=== PATIENT | male | born 1955 | race African-American/Black ===

== ENCOUNTER 2021-07-15 16:14 | Inpatient (IN) | payer MEDICARE ==
[~2021-07-15] VITALS: Ht 177.8 cm; Wt 90.5 kg
[~2021-07-15 16:14] MED LIST: NORVASC5 MG PO
[2021-07-15 18:02] LABS: BASOPHIL 0.7 % (0-2); EOSINOPHIL 0.3 % (0-7); HCT 33.5 % (42.0-52.0); HGB 10.6 g/dl (13.2-18.0); LYMPHOCYTE 12.5 % (15-48); MCH 26.4 pg (25.0-31.0); MCHC 31.6 g/dL (32.0-36.0); MCV 83.5 fL (78.0-100.0); MONOCYTE 13.1 % (0-12); MPV 9.5 fL (6.0-9.5); NEUTROPHIL 72.8 % (41-80); NRBC 0; PLT 391 K/uL (150-400); RBC 4.01 M/uL (4.70-6.00); WBC 9.9 K/uL (4.0-10.5)
[2021-07-15 18:41] LABS: D-DIMER 3.92 ug/mLFEU (0.00-0.41)
[2021-07-15 18:44] LABS: INR 0.97 (0.9-1.2); PROTHROMBIN TIME 12.3 SECONDS (11.8-13.4)
[2021-07-15 18:49] LABS: ALBUMIN 2.4 g/dL (3.4-5.0); ALKALINE PHOSHATASE 243 U/L (46-116); ALT 20 U/L (16-63); AST 33 U/L (15-37); BILIRUBIN - TOTAL 0.6 mg/dL (0.2-1.0); BUN 7 mg/dL (7-18); BUN/CREAT RATIO (CALC) 10.4 RATIO; CHLORIDE 84 mmol/L (98-107); CO2 (BICARBONATE) 29 mmol/L (21-32); CREATININE 0.67 mg/dL (0.67-1.17); GLOBULIN (CALCULATION) 5.2 g/dL; GLUCOSE 175 mg/dL (74-106); LIPASE 96 U/L (73-393); MAGNESIUM 2.3 mg/dL (1.8-2.4); POTASSIUM 3.8 mmol/L (3.5-5.1); TOTAL PROTEIN 7.6 g/dL (6.4-8.2)
[2021-07-15 18:54] LABS: PTT 20.2 SECONDS (24.4-34.7)
[2021-07-15 19:12] LABS: CORONAVIRUS 2019 SARS-COV-2 NEGATIVE (NEGATIVE); INFLUENZA A NAA NEGATIVE (NEGATIVE)
[2021-07-15 20:19] LABS: BILIRUBIN 1+ mg/dL (NEGATIVE); BLOOD NEGATIVE Ery/uL (NEGATIVE); CLARITY CLEAR (CLEAR); COLOR YELLOW (YELLOW); GLUCOSE (U) NORMAL (NORMAL); LEUKOCYTES NEGATIVE Leu/uL (NEGATIVE); NITRITE NEGATIVE (NEGATIVE); PROTEIN NEGATIVE (NEGATIVE); SPECIFIC GRAVITY 1.025 (1.001-1.030); UROBILINOGEN >=8.0 mg/dL (0.2-1.0); pH 5.5 (5.0-9.0)
[2021-07-16 03:07] LABS: BILIRUBIN NEGATIVE (NEGATIVE); BLOOD NEGATIVE Ery/uL (NEGATIVE); CLARITY CLEAR (CLEAR); COLOR YELLOW (YELLOW); GLUCOSE (U) NORMAL (NORMAL); LEUKOCYTES NEGATIVE Leu/uL (NEGATIVE); NITRITE NEGATIVE (NEGATIVE); PROTEIN NEGATIVE (NEGATIVE); pH 5.5 (5.0-9.0)
[2021-07-16 11:26] LABS: BUN/CREAT RATIO (CALC) 5.6 RATIO; CREATININE 0.72 mg/dL (0.67-1.17); POTASSIUM 3.3 mmol/L (3.5-5.1)
[2021-07-16 14:54] LABS: BUN/CREAT RATIO (CALC) 9.2 RATIO; CREATININE 0.65 mg/dL (0.67-1.17); POTASSIUM 3.6 mmol/L (3.5-5.1)
[2021-07-16 17:55] LABS: BUN/CREAT RATIO (CALC) 8.5 RATIO; CREATININE 0.71 mg/dL (0.67-1.17); POTASSIUM 3.7 mmol/L (3.5-5.1)
[2021-07-17 04:07] LABS: BASOPHIL 0.1 % (0-2); EOSINOPHIL 0 % (0-7); LYMPHOCYTE 5.4 % (15-48); MCH 26.5 pg (25.0-31.0); MCV 85.3 fL (78.0-100.0); NRBC 0; PLT 367 K/uL (150-400); WBC 12.1 K/uL (4.0-10.5)
[2021-07-17 04:27] LABS: BUN/CREAT RATIO (CALC) 14.5 RATIO; CREATININE 0.62 mg/dL (0.67-1.17); POTASSIUM 3.9 mmol/L (3.5-5.1)
--- NOTE | 2021-07-17 23:44 | NUR ---
PATIENT HAD FALL AT APPROXIMATELY 2300 ON 07/17/2020. WALKED INTO PATIENT'S ROOM, HE IS ON THE FLOOR. I ASSISTED THE PATIENT BACK TO HELP WITH AISSATOU HAN, AND YUNIER FRAGA. ASSESSED THE PATIENT FOR ANY INJURY, PATIENT STATED HITTING HIS BACK. ORDERED A NEW SHOULDER XRAY.
[2021-07-18 04:15] LABS: ALBUMIN 1.9 g/dL (3.4-5.0); BILIRUBIN - TOTAL 0.4 mg/dL (0.2-1.0); CREATININE 0.63 mg/dL (0.67-1.17); GLOBULIN (CALCULATION) 5.2 g/dL; MAGNESIUM 2.5 mg/dL (1.8-2.4); TOTAL PROTEIN 7.1 g/dL (6.4-8.2)
[2021-07-19 07:54] LABS: BASOPHIL 0.1 % (0-2); EOSINOPHIL 0 % (0-7); HCT 31.2 % (42.0-52.0); HGB 9.4 g/dl (13.2-18.0); LYMPHOCYTE 5.6 % (15-48); MCH 26.3 pg (25.0-31.0); MCHC 30.1 g/dL (32.0-36.0); MCV 87.2 fL (78.0-100.0); MONOCYTE 5.8 % (0-12); NEUTROPHIL 87.7 % (41-80); NRBC 0; PLT 356 K/uL (150-400); RBC 3.58 M/uL (4.70-6.00); RDW 16.3 % (11.5-14.0); RETICULOCYTE COUNT 2.2 % (1.0-2.0); WBC 13.3 K/uL (4.0-10.5)
[2021-07-19 08:27] LABS: BILIRUBIN - TOTAL 0.4 mg/dL (0.2-1.0); BUN/CREAT RATIO (CALC) 19.7 RATIO; CREATININE 0.61 mg/dL (0.67-1.17); GLOBULIN (CALCULATION) 5.1 g/dL; POTASSIUM 4.4 mmol/L (3.5-5.1); TOTAL PROTEIN 7.1 g/dL (6.4-8.2)
[2021-07-19 10:07] LABS: IRON % SATURATION 10.4 %SAT (20-50)
[2021-07-20 05:10] LABS: BASOPHIL 0.1 % (0-2); EOSINOPHIL 0 % (0-7); HCT 30.6 % (42.0-52.0); HGB 9.1 g/dl (13.2-18.0); LYMPHOCYTE 5.1 % (15-48); MCH 25.8 pg (25.0-31.0); MCHC 29.7 g/dL (32.0-36.0); MCV 86.7 fL (78.0-100.0); MONOCYTE 7.6 % (0-12); MPV 8.8 fL (6.0-9.5); NEUTROPHIL 86.4 % (41-80); NRBC 0; PLT 319 K/uL (150-400); RBC 3.53 M/uL (4.70-6.00); RDW 16.4 % (11.5-14.0); WBC 12.4 K/uL (4.0-10.5)
[2021-07-20 05:27] LABS: ALBUMIN 1.8 g/dL (3.4-5.0); BILIRUBIN - TOTAL 0.5 mg/dL (0.2-1.0); BUN/CREAT RATIO (CALC) 27.6 RATIO; CREATININE 0.58 mg/dL (0.67-1.17); GLOBULIN (CALCULATION) 4.9 g/dL; TOTAL PROTEIN 6.7 g/dL (6.4-8.2)
--- NOTE | 2021-07-21 12:23 | NUR ---
07/21/21 Mr. Velásquez continues to be unable to participate in an assessment.
--- NOTE | 2021-07-23 04:57 | NUR ---
CALLED AND SPOKE WITH FAMILY AND NOTIFIED OF PATIENT CONDITION, SISTER THAT NURSE SPOKE STATED SHE WOULD NOTIFY OTHER FAMILY .
--- NOTE | 2021-07-23 05:00 | NUR ---
DR. VANEGAS NOTIFIED OF PT CONDITION .
--- NOTE | 2021-07-23 18:41 | NUR ---
WAITING FOR BROTHER WHO IS POA TO COME TO HOSPITAL FOR [facility] NAME
== END 2021-07-23 21:15 | disposition expired | DRG 193 ==
LOC: FER 16:14 → FTCU 07-16 01:40
PROVIDERS: Emergency Medicine; Emergency Medicine Emergency Medical Services; Hospitalist; Internal Medicine; ADMIT Family Medicine
PROC: 02HV33Z Insertion of Infusion Device into Superior Vena Cava, Percutaneous Approach (ICD-10-PCS; 2021-07-15)
PROC: HZ2ZZZZ Detoxification Services for Substance Abuse Treatment (ICD-10-PCS; 2021-07-18)
PROC: 5A0945A Assistance with Respiratory Ventilation, 24-96 Consecutive Hours, High Flow/Velocity Cannula (ICD-10-PCS; principal; 2021-07-21)
DX: J18.9 Pneumonia, unspecified organism (principal); J96.21 Acute and chronic respiratory failure with hypoxia; G93.41 Metabolic encephalopathy; C34.11 Malignant neoplasm of upper lobe, right bronchus or lung; M84.421A Pathological fracture, right humerus, initial encounter for fracture; J91.0 Malignant pleural effusion; J98.11 Atelectasis; F10.239 Alcohol dependence with withdrawal, unspecified; J44.1 Chronic obstructive pulmonary disease with (acute) exacerbation; E22.2 Syndrome of inappropriate secretion of antidiuretic hormone; Z66 Do not resuscitate; Z20.822 Contact with and (suspected) exposure to COVID-19; J69.0 Pneumonitis due to inhalation of food and vomit; I11.0 Hypertensive heart disease with heart failure; I50.9 Heart failure, unspecified; G40.909 Epilepsy, unspecified, not intractable, without status epilepticus; D50.9 Iron deficiency anemia, unspecified; R59.0 Localized enlarged lymph nodes; F17.200 Nicotine dependence, unspecified, uncomplicated; E09.65 Drug or chemical induced diabetes mellitus with hyperglycemia; T38.0X5A Adverse effect of glucocorticoids and synthetic analogues, initial encounter; R13.10 Dysphagia, unspecified; Z79.899 Other long term (current) drug therapy
CPT/HCPCS: 36415; 36600; 71045; 71275; 73060; 80048; 80053; 80202; 81003; 82803; 82962; 83036; 83540; 83550; 83605; 83690; 83735; 83880; 83935; 84145; 84443; 84484; 85025; 85379; 85610; 85730; 87040; 92526; 93005; 94010; 94640; 94664; 96365; 96368; 96372; 96375; G0480; J0692; J1170; J1650; J1815; J1940; J2405; J2916; J2930; J3360; J3370; J3411; J3475; J7030; J7050; Q9967; U0002